=== PATIENT | female | born 1965 | race Hispanic/Latino ===

== ENCOUNTER 2017-10-29 11:02 | Inpatient (IN) | payer MEDICARE, OTHER, MEDICAID ==
[2017-10-29] MEDS: NICOTINE 14 MG/24 HR TRANSDERMAL TD (09:00)
[2017-10-29] MEDS: LORazepam 2 MG TAB PO (12:13)
[2017-10-29 12:31] LABS: HEMOGLOBIN 13.2 g/dl (12.0-15.5); MEAN CORPUSCULAR HEMOGLOBIN 26.7 pg (27.0-33.0); PLATELET COUNT, AUTOMATED 262 10^3/uL (150-450); RED BLOOD COUNT 4.94 10^6/uL (4.00-5.40); RED CELL DISTRIBUTION WIDTH 19.4 % (11.5-14.5); WHITE BLOOD COUNT 8.5 10^3/uL (4.0-10.0)
[2017-10-29 12:49] LABS: CONTROL LINE HCG INT CTR LINE PRESENT; HCG, SERUM QUALITATIVE NEGATIVE (NEGATIVE)
[2017-10-29 13:11] LABS: ALBUMIN 3.7 GM/DL (3.2-5.2); ALBUMIN/GLOBULIN RATIO 0.95 (1.00-1.93); ALKALINE PHOSPHATASE 101 U/L (45-117); ALT/SGPT 20 U/L (12-78); ANION GAP 10 MEQ/L (8-16); AST/SGOT 18 U/L (7-37); BILIRUBIN,DIRECT < 0.1 MG/DL (0.0-0.2); BILIRUBIN,TOTAL 0.3 MG/DL (0.2-1.0); BLOOD UREA NITROGEN 15 MG/DL (7-18); CARBON DIOXIDE LEVEL 26 MEQ/L (21-32); CHLORIDE LEVEL 105 MEQ/L (98-107); CREATININE FOR GFR 0.72 MG/DL (0.55-1.30); ETHYL ALCOHOL (ETHANOL) < 0.003 % (0.000-0.010); GLOMERULAR FILTRATION RATE > 60.0 (>51); GLUCOSE, FASTING 101 MG/DL (70-100); POTASSIUM SERUM 4.5 MEQ/L (3.5-5.1); SODIUM LEVEL 141 MEQ/L (136-145); THYROID STIMULATING HORMONE 0.568 uIU/ML (0.358-3.740); TOTAL PROTEIN 7.6 GM/DL (6.4-8.2)
[2017-10-29 13:17] LABS: ACETAMINOPHEN LEVEL < 2.0 UG/ML (10.0-30.0)
[2017-10-29 13:30] LABS: AMPHETAMINES LEVEL URINE NEGATIVE (NEGATIVE); BARBITURATES URINE NEGATIVE (NEGATIVE); BENZODIAZEPINES URINE NEGATIVE (NEGATIVE); CANNABINOIDS URINE POSITIVE (NEGATIVE); COCAINE METABOLITE URINE NEGATIVE (NEGATIVE); METHADONE URINE NEGATIVE (NEGATIVE); OPIATES URINE NEGATIVE (NEGATIVE); PHENCYCLIDINE URINE NEGATIVE (NEGATIVE)
[2017-10-29] MEDS ORDERED: traZODone 50 MG TAB PO (14:15)
[2017-10-29] MEDS ORDERED: MOM 30ML SUSPENSION UDC PO (14:15)
[2017-10-29] MEDS ORDERED: MAALOX 30 ML SUSP *UDC PO (14:15)
[2017-10-29] MEDS ORDERED: ALBUTEROL 90 MCG/ACT 8GM HFA INHALER INH (16:00)
[2017-10-29] MEDS ORDERED: FLUTICASONE PROP 0.05% NASAL SPRAY 16 GM (FLONASE) NARES (16:00)
[2017-10-29] MEDS: HALOPERIDOL 5 MG/ML VIAL (J1630) IM (18:34)
[2017-10-29] MEDS: LORazepam 2 MG/ML VIAL (J2060) IM (18:35)
[2017-10-29] MEDS: diphenhydrAMINE INJ 50MG/ML VIAL (J1200) IM (18:35)
[2017-10-29] MEDS: ATORVASTATIN 10 MG TAB PO (19:48)
[2017-10-29] MEDS: APIXABAN 5 MG TAB (ELIQUIS) PO (19:48)
[2017-10-29] MEDS: BENZTROPINE 0.5 MG TAB PO (19:48)
[2017-10-29] MEDS: GABAPENTIN 100 MG CAP PO (19:49)
[2017-10-29] MEDS: QUEtiapine FUMARATE 100 MG TAB PO (19:49)
[2017-10-29] MEDS: METOPROLOL TARTRATE 100 MG TAB PO (19:53)
[2017-10-29] MEDS: FLUTICASONE HFA 110 MCG 12 GM INHALER (FLOVENT) INH (19:54)
[2017-10-30] MEDS: LIDOCAINE 5% (LIDODERM) PATCH TD (01:00)
[2017-10-30] MEDS: GABAPENTIN 100 MG CAP PO (08:48)
[2017-10-30] MEDS: APIXABAN 5 MG TAB (ELIQUIS) PO ×2 (08:48→20:17)
[2017-10-30] MEDS: FLUTICASONE HFA 110 MCG 12 GM INHALER (FLOVENT) INH ×2 (08:50→20:18)
[2017-10-30] MEDS: amLODIPine 10 MG TAB PO (08:50)
[2017-10-30] MEDS: LORazepam 1 MG TAB PO ×3 (08:54→18:31)
[2017-10-30] MEDS: OMEPRAZOLE 20 MG CAP PO ×2 (09:00→20:17)
[2017-10-30] MEDS: NICOTINE 14 MG/24 HR TRANSDERMAL TD (09:00)
[2017-10-30] MEDS: METOPROLOL TARTRATE 100 MG TAB PO ×2 (09:03→20:16)
[2017-10-30 11:46] LABS: HEMATOCRIT 40.1 % (36.0-47.0); MEAN CORPUSCULAR HEMOGLOBIN 26.8 pg (27.0-33.0); MEAN CORPUSCULAR HGB CONC 32.4 g/dl (32.0-36.5); MEAN CORPUSCULAR VOLUME 82.7 fl (80.0-96.0); PLATELET COUNT, AUTOMATED 273 10^3/uL (150-450); RED BLOOD COUNT 4.85 10^6/uL (4.00-5.40); RED CELL DISTRIBUTION WIDTH 19.1 % (11.5-14.5); WHITE BLOOD COUNT 8.8 10^3/uL (4.0-10.0)
[2017-10-30 12:07] LABS: ALBUMIN 3.6 GM/DL (3.2-5.2); ALBUMIN/GLOBULIN RATIO 0.95 (1.00-1.93); ALKALINE PHOSPHATASE 100 U/L (45-117); ALT/SGPT 25 U/L (12-78); AMYLASE 51 U/L (25-115); ANION GAP 6 MEQ/L (8-16); AST/SGOT 19 U/L (7-37); BILIRUBIN,TOTAL 0.2 MG/DL (0.2-1.0); BLOOD UREA NITROGEN 20 MG/DL (7-18); CALCIUM LEVEL 8.8 MG/DL (8.5-10.1); CARBON DIOXIDE LEVEL 28 MEQ/L (21-32); CHLORIDE LEVEL 108 MEQ/L (98-107); CREATININE FOR GFR 0.87 MG/DL (0.55-1.30); GLOMERULAR FILTRATION RATE > 60.0 (>51); GLUCOSE, FASTING 77 MG/DL (70-100); LIPASE 133 U/L (73-393); POTASSIUM SERUM 4.4 MEQ/L (3.5-5.1); SODIUM LEVEL 142 MEQ/L (136-145); TOTAL PROTEIN 7.4 GM/DL (6.4-8.2)
[2017-10-30] MEDS: GABAPENTIN 400 MG CAP PO ×2 (15:55→20:17)
[2017-10-30] MEDS: ATORVASTATIN 10 MG TAB PO (20:16)
[2017-10-30] MEDS: BENZTROPINE 0.5 MG TAB PO (20:17)
[2017-10-30] MEDS: DOXEPIN 25 MG CAP PO (20:17)
[2017-10-30] MEDS: **NOTE PATIENT COMMENT** MISC XX (20:18)
[2017-10-30] MEDS: OLANZapine ORAL DISINTEGRATING TAB 5MG PO (21:45)
[2017-10-31] MEDS: FLUTICASONE HFA 110 MCG 12 GM INHALER (FLOVENT) INH ×2 (08:05→21:19)
[2017-10-31] MEDS: OMEPRAZOLE 20 MG CAP PO ×2 (08:06→21:19)
[2017-10-31] MEDS: APIXABAN 5 MG TAB (ELIQUIS) PO ×2 (08:06→21:17)
[2017-10-31] MEDS: GABAPENTIN 400 MG CAP PO ×3 (08:06→21:19)
[2017-10-31] MEDS: METOPROLOL TARTRATE 100 MG TAB PO ×2 (08:06→21:20)
[2017-10-31] MEDS: amLODIPine 10 MG TAB PO (08:06)
[2017-10-31] MEDS: NICOTINE 14 MG/24 HR TRANSDERMAL TD (08:07)
[2017-10-31] MEDS: LIDOCAINE 5% (LIDODERM) PATCH TD (08:07)
[2017-10-31] MEDS: LORazepam 1 MG TAB PO ×2 (08:08→19:32)
[2017-10-31] MEDS: OLANZapine ORAL DISINTEGRATING TAB 5MG PO ×3 (11:59→22:12)
[2017-10-31] MEDS: ACETAMINOPHEN TAB 650MG DOSE (2X325MG) PO (15:25)
[2017-10-31] MEDS: **NOTE PATIENT COMMENT** MISC XX (21:13)
[2017-10-31] MEDS: ATORVASTATIN 10 MG TAB PO (21:17)
[2017-10-31] MEDS: ARIPiprazole 10 MG TAB PO (21:18)
[2017-10-31] MEDS: BENZTROPINE 0.5 MG TAB PO (21:18)
[2017-10-31] MEDS: DOXEPIN 25 MG CAP PO (21:19)
[2017-11-01] MEDS: GABAPENTIN 400 MG CAP PO (08:14)
[2017-11-01] MEDS: FLUTICASONE HFA 110 MCG 12 GM INHALER (FLOVENT) INH ×2 (08:14→20:04)
[2017-11-01] MEDS: ARIPiprazole 10 MG TAB PO (08:15)
[2017-11-01] MEDS: METOPROLOL TARTRATE 100 MG TAB PO ×2 (08:15→20:05)
[2017-11-01] MEDS: LIDOCAINE 5% (LIDODERM) PATCH TD (08:15)
[2017-11-01] MEDS: OMEPRAZOLE 20 MG CAP PO ×2 (08:15→20:05)
[2017-11-01] MEDS: APIXABAN 5 MG TAB (ELIQUIS) PO ×2 (08:15→20:03)
[2017-11-01] MEDS: amLODIPine 10 MG TAB PO (08:15)
[2017-11-01] MEDS: LORazepam 1 MG TAB PO ×3 (08:15→18:17)
[2017-11-01] MEDS: NICOTINE 14 MG/24 HR TRANSDERMAL TD (08:16)
[2017-11-01] MEDS: ACETAMINOPHEN TAB 650MG DOSE (2X325MG) PO (09:53)
[2017-11-01] MEDS: OLANZapine ORAL DISINTEGRATING TAB 5MG PO ×3 (09:53→21:15)
[2017-11-01] MEDS: GABAPENTIN 300 MG CAP PO ×2 (15:45→20:05)
[2017-11-01 18:33] LABS: BEDSIDE GLUCOSE 320 MG/DL (70-105)
[2017-11-01 19:23] LABS: BEDSIDE GLUCOSE 110 MG/DL (70-105)
[2017-11-01] MEDS: **NOTE PATIENT COMMENT** MISC XX (20:00)
[2017-11-01] MEDS: ATORVASTATIN 10 MG TAB PO (20:03)
[2017-11-01] MEDS: BENZTROPINE 0.5 MG TAB PO (20:03)
[2017-11-01] MEDS: ARIPiprazole 15 MG TAB (AbiLIFY) PO (20:03)
[2017-11-01] MEDS: DOXEPIN 25 MG CAP PO (20:05)
[2017-11-02] MEDS: APIXABAN 5 MG TAB (ELIQUIS) PO ×2 (08:23→21:13)
[2017-11-02] MEDS: ARIPiprazole 15 MG TAB (AbiLIFY) PO (08:23)
[2017-11-02] MEDS: amLODIPine 10 MG TAB PO (08:23)
[2017-11-02] MEDS: METOPROLOL TARTRATE 100 MG TAB PO ×2 (08:23→21:14)
[2017-11-02] MEDS: GABAPENTIN 300 MG CAP PO ×3 (08:23→21:11)
[2017-11-02] MEDS: OMEPRAZOLE 20 MG CAP PO ×2 (08:23→21:11)
[2017-11-02] MEDS: FLUTICASONE HFA 110 MCG 12 GM INHALER (FLOVENT) INH ×2 (08:23→21:15)
[2017-11-02] MEDS: LIDOCAINE 5% (LIDODERM) PATCH TD (08:24)
[2017-11-02] MEDS: LORazepam 1 MG TAB PO ×2 (08:24→18:17)
[2017-11-02] MEDS: NICOTINE 14 MG/24 HR TRANSDERMAL TD (08:24)
[2017-11-02] MEDS: OLANZapine ORAL DISINTEGRATING TAB 5MG PO ×3 (09:52→21:12)
[2017-11-02] MEDS: ACETAMINOPHEN TAB 650MG DOSE (2X325MG) PO (14:57)
[2017-11-02 16:55] LABS: BEDSIDE GLUCOSE 131 MG/DL (70-105)
[2017-11-02] MEDS: DOXEPIN 25 MG CAP PO (21:12)
[2017-11-02] MEDS: ARIPiprazole 10 MG TAB PO (21:13)
[2017-11-02] MEDS: BENZTROPINE 0.5 MG TAB PO (21:13)
[2017-11-02] MEDS: ATORVASTATIN 10 MG TAB PO (21:15)
[2017-11-02] MEDS: **NOTE PATIENT COMMENT** MISC XX (21:30)
[2017-11-03 06:32] LABS: BEDSIDE GLUCOSE 111 MG/DL (70-105)
[2017-11-03] MEDS: NICOTINE 14 MG/24 HR TRANSDERMAL TD (08:18)
[2017-11-03] MEDS: LIDOCAINE 5% (LIDODERM) PATCH TD (08:21)
[2017-11-03] MEDS: FLUTICASONE HFA 110 MCG 12 GM INHALER (FLOVENT) INH (08:22)
[2017-11-03] MEDS: OMEPRAZOLE 20 MG CAP PO (08:22)
[2017-11-03] MEDS: GABAPENTIN 300 MG CAP PO (08:22)
[2017-11-03] MEDS: APIXABAN 5 MG TAB (ELIQUIS) PO (08:23)
[2017-11-03] MEDS: METOPROLOL TARTRATE 100 MG TAB PO (08:23)
[2017-11-03] MEDS: amLODIPine 10 MG TAB PO (08:23)
[2017-11-03] MEDS: ARIPiprazole 10 MG TAB PO (08:23)
[2017-11-03] MEDS: OLANZapine ORAL DISINTEGRATING TAB 5MG PO (08:24)
[2017-11-03] MEDS ORDERED: ARIPiprazole 10 MG TAB PO ×2 (09:00)
[2017-11-03] MEDS: ARIPiprazole MONOHYDRATE 400 MG INJ (ABILIFY)(J0401) IM (10:12)
== END 2017-11-03 11:00 | disposition home or self-care (01) | DRG 885 ==
LOC: M ED 11:02 → M ED INP 14:04 → M PSY 15:56
DX: F31.5 Bipolar disorder, current episode depressed, severe, with psychotic features (principal); F43.10 Post-traumatic stress disorder, unspecified; F12.90 Cannabis use, unspecified, uncomplicated; Z79.899 Other long term (current) drug therapy; Z88.8 Allergy status to other drugs, medicaments and biological substances; Z91.040 Latex allergy status; F41.9 Anxiety disorder, unspecified; K21.9 Gastro-esophageal reflux disease without esophagitis; J45.909 Unspecified asthma, uncomplicated; E78.5 Hyperlipidemia, unspecified; I10 Essential (primary) hypertension; Z79.01 Long term (current) use of anticoagulants; G47.00 Insomnia, unspecified; M54.5 Low back pain; G89.29 Other chronic pain; L40.50 Arthropathic psoriasis, unspecified; Z98.84 Bariatric surgery status; Z86.711 Personal history of pulmonary embolism; F17.200 Nicotine dependence, unspecified, uncomplicated; E55.9 Vitamin D deficiency, unspecified